=== PATIENT | male | born 1960 | race African-American/Black ===

== ENCOUNTER 2022-01-25 08:58 | Emergency (ER) | payer MEDICAID ==
[~2022-01-25] VITALS: Ht 167.6 cm; Wt 90.0 kg
[2022-01-25 09:54] LABS: BASOPHILS % 0.8 % (0.0-2.0); EOSINOPHILS % 2.7 % (0.0-5.0); HEMATOCRIT. 36.2 % (42.0-52.0); HEMOGLOBIN. 12.5 g/dL (14.0-18.0); LYMPHOCYTES % 13.6 % (20.0-50.0); MEAN CORPUSCULAR HEMOGLOBIN 32.3 pg (28.0-32.0); MEAN CORPUSCULAR VOLUME 93.4 fL (80.0-94.0); MEAN PLATELET VOLUME 7.9 fl (7.4-10.4); MONOCYTES % 14.5 % (2.0-8.0); NEUTROPHILS % 68.4 % (40.0-76.0); PLATELET 205 x1000/uL (130-400); RED BLOOD CELL COUNT 3.87 mill/uL (4.7-6.1); RED CELL DISTRIBUTION WIDTH 14.3 % (11.6-14.6)
[2022-01-25 10:03] LABS: CHLORIDE 108 mEq/L (98-107)
[2022-01-25 10:04] LABS: INR 1.3; PROTHROMBIN TIME 13.5 sec (9.6-11.0)
[2022-01-25] MEDS ORDERED: LIDOCAINE HCL 1% 10 MG/ML 10ML VIAL ONE (11:34)
[2022-01-25] MEDS ORDERED: SODIUM BICARBONATE 4% (2.4MEQ) 5ML VIAL IV ONE (11:35)
[2022-01-25] MEDS ORDERED: ALBUMIN HUMAN 25GM/500ML (5%) IV SCH (13:30)
[2022-01-25 16:00] VITALS: BP 130/82
== END 2022-01-25 16:19 | disposition home or self-care (01) ==
LOC: ER 08:58
DX: R18.8 Other ascites (principal); B18.2 Chronic viral hepatitis C; K74.60 Unspecified cirrhosis of liver; I71.4 Abdominal aortic aneurysm, without rupture; I72.3 Aneurysm of iliac artery; K43.9 Ventral hernia without obstruction or gangrene; F17.210 Nicotine dependence, cigarettes, uncomplicated; E11.9 Type 2 diabetes mellitus without complications; Z86.19 Personal history of other infectious and parasitic diseases; Z20.822 Contact with and (suspected) exposure to COVID-19; Z98.890 Other specified postprocedural states
CPT/HCPCS: 36415; 49083; 74174; 80053; 83690; 85025; 85610; 86850; 86900; 86901; 87426; 96374; 99285; J3490; P9041; Z7610

== ENCOUNTER 2022-02-08 05:47 | Emergency (ER) | payer MEDICAID ==
[~2022-02-08] VITALS: Ht 177.8 cm; Wt 102.4 kg
[2022-02-08] MEDS ORDERED: OXYCODONE HCL/ACETAMINOPHEN 5/325MG TABLET PO ONE (06:45)
[2022-02-08 06:46] LABS: CHLORIDE 107 mEq/L (98-107)
[2022-02-08 06:54] LABS: HEMATOCRIT. 42.4 % (42.0-52.0); HEMOGLOBIN. 14.3 g/dL (14.0-18.0); MEAN CORPUSCULAR HEMOGLOBIN 32.1 pg (28.0-32.0); MEAN CORPUSCULAR VOLUME 95.1 fL (80.0-94.0); MEAN PLATELET VOLUME 7.7 fl (7.4-10.4); PLATELET 273 x1000/uL (130-400); RED BLOOD CELL COUNT 4.46 mill/uL (4.7-6.1); RED CELL DISTRIBUTION WIDTH 15.2 % (11.6-14.6)
[2022-02-08 06:59] LABS: INR 1.2
[2022-02-08 08:35] LABS: PLATELET ESTIMATE NORMAL
[2022-02-08 12:08] VITALS: BP 121/80
== END 2022-02-08 12:11 | disposition home or self-care (01) ==
LOC: ER 05:47
DX: R58 Hemorrhage, not elsewhere classified (principal); R18.8 Other ascites; E11.9 Type 2 diabetes mellitus without complications; I10 Essential (primary) hypertension; F17.210 Nicotine dependence, cigarettes, uncomplicated; Z86.19 Personal history of other infectious and parasitic diseases; Z98.890 Other specified postprocedural states; Z20.822 Contact with and (suspected) exposure to COVID-19
CPT/HCPCS: 36415; 49083; 80053; 83690; 85025; 85610; 87070; 87205; 87426; 89050; 93005; 99285; Z7610

== ENCOUNTER 2022-02-20 05:57 | Emergency (ER) | payer MEDICAID ==
[~2022-02-20] VITALS: Ht 177.8 cm; Wt 97.9 kg
[2022-02-20 06:24] VITALS: BP 125/79
[2022-02-20 07:19] LABS: BASOPHILS % 1.2 % (0.0-2.0); EOSINOPHILS % 3.3 % (0.0-5.0); HEMATOCRIT. 42.3 % (42.0-52.0); HEMOGLOBIN. 14.1 g/dL (14.0-18.0); LYMPHOCYTES % 10.9 % (20.0-50.0); MEAN CORPUSCULAR HEMOGLOBIN 31.4 pg (28.0-32.0); MEAN CORPUSCULAR VOLUME 94.1 fL (80.0-94.0); MEAN PLATELET VOLUME 7.6 fl (7.4-10.4); MONOCYTES % 12.9 % (2.0-8.0); NEUTROPHILS % 71.7 % (40.0-76.0); PLATELET 224 x1000/uL (130-400); RED CELL DISTRIBUTION WIDTH 15.1 % (11.6-14.6)
[2022-02-20 07:23] LABS: CHLORIDE 105 mEq/L (98-107)
[2022-02-20 07:28] LABS: INR 1.3; PROTHROMBIN TIME 13.8 sec (9.6-11.0)
[2022-02-20] MEDS ORDERED: SODIUM BICARBONATE 4% (2.4MEQ) 5ML VIAL IV ONE (09:13)
[2022-02-20] MEDS ORDERED: LIDOCAINE HCL 1% 10 MG/ML 10ML VIAL ONE (09:13)
== END 2022-02-20 13:40 | disposition home or self-care (01) ==
LOC: ER 06:34
DX: R18.8 Other ascites (principal); I10 Essential (primary) hypertension; E11.9 Type 2 diabetes mellitus without complications; Z20.822 Contact with and (suspected) exposure to COVID-19; Z98.890 Other specified postprocedural states
CPT/HCPCS: 36415; 49083; 80053; 85025; 85610; 87426; 99285; J3490; Z7610

== ENCOUNTER 2022-03-01 06:17 | Emergency (ER) | payer MEDICAID ==
[~2022-03-01] VITALS: Ht 177.8 cm; Wt 95.0 kg
[2022-03-01 08:26] LABS: BASOPHILS % 0.9 % (0.0-2.0); EOSINOPHILS % 2.2 % (0.0-5.0); HEMATOCRIT. 42.1 % (42.0-52.0); HEMOGLOBIN. 14.3 g/dL (14.0-18.0); LYMPHOCYTES % 7.2 % (20.0-50.0); MEAN CORPUSCULAR HEMOGLOBIN 31.8 pg (28.0-32.0); MEAN PLATELET VOLUME 7.6 fl (7.4-10.4); MONOCYTES % 11.3 % (2.0-8.0); NEUTROPHILS % 78.4 % (40.0-76.0); PLATELET 247 x1000/uL (130-400); RED BLOOD CELL COUNT 4.48 mill/uL (4.7-6.1); RED CELL DISTRIBUTION WIDTH 15.1 % (11.6-14.6)
[2022-03-01 08:32] LABS: CHLORIDE 103 mEq/L (98-107)
[2022-03-01 08:34] LABS: INR 1.2
[2022-03-01] MEDS ORDERED: SODIUM BICARBONATE 4% (2.4MEQ) 5ML VIAL IV ONE (09:29)
[2022-03-01] MEDS ORDERED: LIDOCAINE HCL 1% 10 MG/ML 10ML VIAL ONE (09:30)
[2022-03-01] MEDS ORDERED: MORPHINE SULFATE 4 MG/ML CPJ (NOT FOR IM USE) IV ONE (09:45)
[2022-03-01 12:44] VITALS: BP 121/64
== END 2022-03-01 12:47 | disposition home or self-care (01) ==
LOC: ER 06:17
DX: R18.8 Other ascites (principal); I12.9 Hypertensive chronic kidney disease with stage 1 through stage 4 chronic kidney disease, or unspecified chronic kidney disease; E11.22 Type 2 diabetes mellitus with diabetic chronic kidney disease; N18.9 Chronic kidney disease, unspecified; F17.210 Nicotine dependence, cigarettes, uncomplicated; Z71.6 Tobacco abuse counseling
CPT/HCPCS: 36415; 49083; 71045; 80053; 83690; 85025; 85610; 87426; 96374; 99285; 99406; J2270; J3490; Z7610

== ENCOUNTER 2022-03-14 06:09 | Emergency (ER) | payer MEDICAID ==
[~2022-03-14] VITALS: Ht 177.8 cm; Wt 93.6 kg
[2022-03-14 07:58] LABS: CHLORIDE 101 mEq/L (98-107)
[2022-03-14 08:00] LABS: EOSINOPHILS % 1.9 % (0.0-5.0); HEMATOCRIT. 40.6 % (42.0-52.0); HEMOGLOBIN. 13.8 g/dL (14.0-18.0); INR 1.3; LYMPHOCYTES % 9.6 % (20.0-50.0); MEAN CORPUSCULAR HEMOGLOBIN 31.3 pg (28.0-32.0); MEAN CORPUSCULAR VOLUME 92.2 fL (80.0-94.0); MEAN PLATELET VOLUME 7.7 fl (7.4-10.4); MONOCYTES % 14.1 % (2.0-8.0); NEUTROPHILS % 73.4 % (40.0-76.0); PLATELET 267 x1000/uL (130-400); PROTHROMBIN TIME 13.5 sec (9.6-11.0)
[2022-03-14] MEDS ORDERED: LIDOCAINE HCL 1% 10 MG/ML 10ML VIAL ONE (09:01)
[2022-03-14] MEDS ORDERED: SODIUM BICARBONATE 4% (2.4MEQ) 5ML VIAL IV ONE (09:01)
[2022-03-14 13:05] VITALS: BP 109/75
== END 2022-03-14 13:29 | disposition home or self-care (01) ==
LOC: ER 06:09
DX: R18.8 Other ascites (principal); K72.90 Hepatic failure, unspecified without coma; I10 Essential (primary) hypertension; E11.9 Type 2 diabetes mellitus without complications; Z20.822 Contact with and (suspected) exposure to COVID-19; Z98.890 Other specified postprocedural states
CPT/HCPCS: 36415; 49083; 80053; 85025; 85610; 87070; 87075; 87205; 87426; 89050; 99285; C9803; J3490; Z7610